=== PATIENT | female | born 1950 | race Hispanic/Latino ===

== ENCOUNTER 2017-08-07 09:13 | Inpatient (IN) | payer BC, MEDICARE ==
[2017-08-07 10:03] LABS: EOS % 2.6 % (1.5-5.0); GRAN # 0.05 (1.4-6.5); GRAN % 12.8 % (50.0-68.0); HEMOGLOBIN 8.1 g/dL (12.0-16.0); LYMPH # 0.3 (1.2-3.4); LYMPH % 76.9 % (22.0-35.0); MEAN CELL VOLUME 94.8 fl (80.0-105.0); MEAN CORPUSCULAR HEMOGLOBIN 32.7 pg (25.0-35.0); MEAN CORPUSCULAR HGB CONC 34.5 g/dl (31.0-37.0); MEAN PLATELET VOLUME 9.8 fl (7.0-11.0); MONO % 7.7 % (1.0-6.0); RBC 2.48 10^6/uL (3.5-6.1); RED CELL DISTRIBUTION WIDTH 14.4 % (11.5-14.5)
[2017-08-07 10:12] LABS: ALBUMIN 4.4 g/dL (3.0-4.8); BLOOD UREA NITROGEN 19 mg/dL (7-21); GFR AFRICAN-AMERICAN > 60; GFR NON-AFRICAN AMERICAN > 60
[2017-08-07 10:13] LABS: ALB/GLOB RATIO 1.3 (1.1-1.8); ALT/SGPT 26 U/L (7-56); AST/SGOT 18 U/L (14-36)
[2017-08-07 10:16] LABS: INR 1.12 (0.93-1.08); PARTIAL THROMBOPLASTIN TIME 25.7 Seconds (25.1-36.5); PROTHROMBIN TIME 12.9 SECONDS (9.4-12.5)
[2017-08-07 10:19] LABS: WHITE BLOOD COUNT 0.4 10^3/ul (4.5-11.0)
[2017-08-07 10:20] LABS: PLATELET COUNT 14 10^3/uL (120.0-450.0)
--- NOTE | 2017-08-07 10:42 | ED PDOC ---
Arrival/HPI - General Chief Complaint: Abnormal Labs Time Seen by Provider: 08/07/17 09:21 Historian: Patient - History of Present Illness Narrative History of Present Illness (Text): 08/07/17 10:05 67 year old female, whose past medical history includes hypertension, diabetes, and GERD, presents to the emergency department for low blood levels. Patient reports she was sent here by her PMD after getting a call informing her on her abnormal labs. Patient states she has multiple bruising on her body for the past several days. Patient denies any fever, chills, chest pain, hemoptysis, shortness of breath, nausea, vomiting, diarrhea, hematuria, urinary symptoms, back pain, neck pain, headache, dizziness, or any other complaints. PMD: Dr. Miranda 08/07/17 11:27 Symptom Onset: Sudden Symptom Course: Unchanged Activities at Onset: Light Context: Home Past Medical History - Provider Review Nursing Documentation Reviewed: Yes - Infectious Disease Hx of Infectious Diseases: None - Reproductive Menopause: Yes - Cardiac Hx Hypertension: Yes - Endocrine/Metabolic Hx Diabetes Mellitus Type 2: Yes - Gastrointestinal Hx Gastroesophageal Reflux: Yes - Psychiatric Hx Depression: No Hx Emotional Abuse: No Hx Physical Abuse: No Hx Substance Use: No - Surgical History Hx Cholecystectomy: Yes Hx Hysterectomy: Yes - Anesthesia Hx Anesthesia: Yes Hx Anesthesia Reactions: No - Suicidal Assessment Feels Threatened In Home Enviroment: No Family/Social History - Physician Review Nursing Documentation Reviewed: Yes Family/Social History: No Known Family HX Smoking Status: Never Smoked Hx Alcohol Use: No Hx Substance Use: No Hx Substance Use Treatment: No Allergies/Home Meds Allergies/Adverse Reactions: Allergies No Known Allergies Allergy (Verified 07/06/13 17:25) Home Medications: Home Meds Medication Instructions Recorded Confirmed Glimepiride [amaRYL] 1 tab PO DAILY 08/07/17 08/07/17 Insulin Glargine,Hum.rec.anlog 15 units SQ DAILY 08/07/17 08/07/17 [Rosa Elena Ramsay] Olmesartan/Hydrochlorothiazide 1 tab PO DAILY 08/07/17 08/07/17 [Olmesartan-Hctz 20-12.5 mg Tab] Rabeprazole Sodium [Aciphex] 20 mg PO DAILY 08/07/17 08/07/17 Review of Systems - Physician Review All systems were reviewed & negative as marked: Yes - Review of Systems Constitutional: absent: Fevers, Other (Chills) Respiratory: absent: SOB, Other (hemoptysis ) Cardiovascular: absent: Chest Pain Gastrointestinal: absent: Diarrhea, Nausea, Vomiting Genitourinary Female: absent: Hematuria Musculoskeletal: absent: Back Pain, Neck Pain Neurological: absent: Headache, Dizziness Physical Exam Vital Signs Reviewed: Yes Vital Signs Temp Pulse Resp BP Pulse Ox 08/07/17 13:13 96 H 18 155/68 H 100 08/07/17 11:13 95 H 18 157/72 H 99 08/07/17 09:23 98.2 F 102 H 18 164/77 H 99 Temperature: Afebrile Blood Pressure: Hypertensive Pulse: Tachycardic Respiratory Rate: Normal Appearance: Positive for: Well-Appearing, Non-Toxic, Comfortable Pain Distress: None Mental Status: Positive for: Alert and Oriented X 3 - Systems Exam Head: Present: Atraumatic, Normocephalic Pupils: Present: PERRL Extroacular Muscles: Present: EOMI Conjunctiva: Present: Normal Mouth: Present: Moist Mucous Membranes Neck: Present: Normal Range of Motion Respiratory/Chest: Present: Clear to Auscultation, Good Air Exchange. No: Respiratory Distress, Accessory Muscle Use Cardiovascular: Present: Regular Rate and Rhythm, Normal S1, S2. No: Murmurs Abdomen: Present: Normal Bowel Sounds. No: Tenderness, Distention, Peritoneal Signs Back: Present: Normal Inspection Upper Extremity: Present: Normal Inspection. No: Cyanosis, Edema Lower Extremity: Present: Normal Inspection. No: Edema Neurological: Present: GCS=15, CN II-XII Intact, Speech Normal Skin: Present: Warm, Dry, Normal Color, Other (Multiple bruising in different stages of healing and in multiple locations). No: Rashes Psychiatric: Present: Alert, Oriented x 3, Normal Insight, Normal Concentration Medical Decision Making ED Course and Treatment: 08/07/17 10:05 Impression: 67 year old female presents for low blood levels. Plan: -- Labs -- Reassess and disposition Prior Visits: Notes and results from previous visits were reviewed. Patient was last seen in the emergency department on 09/27/15 presents for chest discomfort. Patient left against medical advice. Progress Notes: 08/07/17 10:32 Reverse Isolation done due to WBC 0.4 and Immune compromise. 08/07/17 10:35 Case discussed with resident and Dr. Miranda who is aware and agrees with the plan. Patient will be admitted. - Lab Interpretations Lab Results: 08/07/17 09:35 08/07/17 09:35 Lab Results 08/07/17 09:35: Blood Type A POSITIVE, Antibody Screen Negative, BBK History Checked No verified bt 08/07/17 09:35: Sodium 141, Potassium 3.8, Chloride 105, Carbon Dioxide 24, Anion Gap 16, BUN 19, Creatinine 0.6 L, Est GFR ( Amer) > 60, Est GFR ( Non-Af Amer) > 60, Random Glucose 192 H, Calcium 10.0, Total Bilirubin 0.5, AST 18, ALT 26, Alkaline Phosphatase 135 H, Total Protein 7.6, Albumin 4.4, Globulin 3.3, Albumin/Globulin Ratio 1.3 08/07/17 09:35: PT 12.9 H, INR 1.12 H, APTT 25.7 08/07/17 09:35: WBC 0.4 L* D, RBC 2.48 L, Hgb 8.1 L, Hct 23.5 L, MCV 94.8, MCH 32.7, MCHC 34.5, RDW 14.4, Plt Count 14 L*, MPV 9.8, Gran % 12.8 L, Lymph % ( Auto) 76.9 H, [place] % (Auto) 7.7 H, Eos % (Auto) 2.6, Baso % (Auto) 0.0, Gran # 0.05 L, Lymph # 0.3 L, [place] # 0.0 L, Eos # 0.0, Baso # 0.00, Neutrophils % ( Manual) 16 L, Lymphocytes % (Manual) 80 H, Monocytes % (Manual) TEST NOT PERFORMED, Eosinophils % (Manual) 4 H, Platelet Evaluation Low I have reviewed the lab results: Yes - Medication Orders Current Medication Orders: Insulin Human Regular (Humulin R Low) 0 units SC ACHS [facility] PRN Reason: Protocol Losartan Potassium (Cozaar) 100 mg PO DAILY [facility] - Scribe Statement The provider has reviewed the documentation as recorded by the Aysha Renee Provider Scribe Attestation: All medical record entries made by the Scribe were at my direction and personally dictated by me. I have reviewed the chart and agree that the record accurately reflects my personal performance of the history, physical exam, medical decision making, and the department course for this patient. I have also personally directed, reviewed, and agree with the discharge instructions and disposition. Disposition/Present on Arrival - Present on Arrival Any Indicators Present on Arrival: No History of DVT/PE: No History of Uncontrolled Diabetes: No Urinary Catheter: No History of Decub. Ulcer: No History Surgical Site Infection Following: None - Disposition Have Diagnosis and Disposition been Completed?: Yes Diagnosis: Pancytopenia Disposition: HOSPITALIZED Disposition Time: 10:10 Patient Plan: Admission Condition: FAIR
[2017-08-07 10:55] LABS: EOSINOPHIL 4 % (0.0-3.0); LYMPHOCYTE 80 % (22.0-35.0); NEUTROPHIL 16 % (50.0-70.0)
[2017-08-07 10:56] LABS: PLATELET ESTIMATE LOW (NORMAL)
[2017-08-07] MEDS: Insulin Reg-LOW-Coverage SC SCH ×2 (17:56→23:22)
[2017-08-07 19:37] VITALS: BMI 28.0
[2017-08-07] MEDS ORDERED: Influenza Vaccine 60 mcg/0.5 mL SYR (4YR UP) IM ONE (19:37)
[2017-08-07] MEDS ORDERED: Pneumococcal 23-Valent Vaccine IM ONE (19:37)
[2017-08-07 19:47] LABS: GRAN # 0.06 (1.4-6.5); GRAN % 15.8 % (50.0-68.0); LYMPH # 0.3 (1.2-3.4); LYMPH % 76.3 % (22.0-35.0); MEAN CELL VOLUME 96.1 fl (80.0-105.0); MEAN CORPUSCULAR HEMOGLOBIN 33.2 pg (25.0-35.0); MEAN CORPUSCULAR HGB CONC 34.5 g/dl (31.0-37.0); MEAN PLATELET VOLUME 9.8 fl (7.0-11.0); MONO % 7.9 % (1.0-6.0); RBC 2.32 10^6/uL (3.5-6.1); RED CELL DISTRIBUTION WIDTH 14.5 % (11.5-14.5)
[2017-08-07 19:49] LABS: HEMOGLOBIN 7.7 g/dL (12.0-16.0)
[2017-08-07 19:50] LABS: PLATELET COUNT 11 10^3/uL (120.0-450.0); WHITE BLOOD COUNT 0.4 10^3/ul (4.5-11.0)
[2017-08-07] MEDS: MethylPREDNISolone 40 mg Vial IVP SCH (22:55)
[2017-08-08 07:42] LABS: GRAN # 0.06 (1.4-6.5); GRAN % 19.3 % (50.0-68.0); LYMPH # 0.2 (1.2-3.4); MEAN CELL VOLUME 94.3 fl (80.0-105.0); MEAN CORPUSCULAR HEMOGLOBIN 32.4 pg (25.0-35.0); MEAN CORPUSCULAR HGB CONC 34.3 g/dl (31.0-37.0); MEAN PLATELET VOLUME 11.1 fl (7.0-11.0); MONO % 9.7 % (1.0-6.0); RBC 2.44 10^6/uL (3.5-6.1); RED CELL DISTRIBUTION WIDTH 14.1 % (11.5-14.5)
[2017-08-08 08:00] LABS: HEMOGLOBIN 7.9 g/dL (12.0-16.0); PLATELET COUNT 13 10^3/uL (120.0-450.0); WHITE BLOOD COUNT 0.3 10^3/ul (4.5-11.0)
[2017-08-08 08:14] LABS: BLOOD UREA NITROGEN 20 mg/dL (7-21)
[2017-08-08 08:15] LABS: ALB/GLOB RATIO 1.4 (1.1-1.8); ALBUMIN 4.3 g/dL (3.0-4.8); ALT/SGPT 24 U/L (7-56); AST/SGOT 16 U/L (14-36); CALCIUM 10.3 mg/dL (8.4-10.5); GFR AFRICAN-AMERICAN > 60; GFR NON-AFRICAN AMERICAN > 60
[2017-08-08] MEDS: Insulin Reg-LOW-Coverage SC SCH ×3 (08:54→22:00)
[2017-08-08 10:06] LABS: PLATELET ESTIMATE LOW (NORMAL)
[2017-08-08] MEDS: MethylPREDNISolone 40 mg Vial IVP SCH ×2 (11:10→21:59)
[2017-08-08 11:11] LABS: PLATELET COUNT MANUAL 15 K/mm3 (120-450)
[2017-08-08 12:00] LABS: MEAN CELL VOLUME 94.2 fl (80.0-105.0); MEAN CORPUSCULAR HEMOGLOBIN 32.4 pg (25.0-35.0); MEAN CORPUSCULAR HGB CONC 34.4 g/dl (31.0-37.0); RBC 2.41 10^6/uL (3.5-6.1)
[2017-08-08 12:14] LABS: HEMOGLOBIN 7.8 g/dL (12.0-16.0); WHITE BLOOD COUNT 0.5 10^3/ul (4.5-11.0)
[2017-08-08 12:15] LABS: PLATELET COUNT 12 10^3/uL (120.0-450.0)
--- NOTE | 2017-08-08 13:23 | CP.PCM.CON ---
History of Present Illness - History of Present Illness History of Present Illness: 67 year old female with PMH of DM, HTN, GERD, S/P cholecystectomy, S/P hysterectomy came in to [facility] after she had blood work done with her PMD after complaining of bruising over her body. She was noted to be pancytopenic and told to go to be admitted. She hada dental procedure about 2 weeks ago and was given a couple of doses of Clindamycin. She denies headache or dizziness, no cough or colds, no rhinorrhea, no sore throat, no nausea or vomiting, no chest pain, no SOB, no abdominal pain, no diarrhea, no dysuria. She denies animal contacts, no insect bites, denies travel outside of [place] in the past 3 months, no swimming, no travel to wooded areas, denies eating anything out of the ordinary. Infectious Diseases consult is requested to further evaluate and manage. Review of Systems - Review of Systems All systems: reviewed and no additional remarkable complaints except (as per HPI ) Past Patient History - Infectious Disease Hx of Infectious Diseases: None - Past Social History Smoking Status: Never Smoked - CARDIAC Hx Hypertension: Yes - HEENT Hx HEENT Problems: (eyeglasses) Other/Comment: pt had dental work new top plate and implants on bottom was started on erythromycin for top right gum pain took abx x1 wk followed up with dentists partner abx changed to clindamycin started taking it 08/02, 08/03, on friday08/04/17 noticed bruising over entire body in various stages - ENDOCRINE/METABOLIC Hx Diabetes Mellitus Type 2: Yes - INTEGUMENTARY Hx Dermatological Problems: Yes (multiple tatoos) - MUSCULOSKELETAL/RHEUMATOLOGICAL Hx Falls: No - GASTROINTESTINAL Hx Gastroesophageal Reflux: Yes - PSYCHIATRIC Hx Depression: No Hx Emotional Abuse: No Hx Physical Abuse: No Hx Substance Use: No - SURGICAL HISTORY Hx Cholecystectomy: Yes Hx Hysterectomy: Yes Other/Comment: stress fx 1st metarsal r ft has 2 screws 03/2014 - ANESTHESIA Hx Anesthesia: Yes Hx Anesthesia Reactions: No Meds Allergies/Adverse Reactions: Allergies Allergy/AdvReac Type Severity Reaction Status Date / Time No Known Allergies Allergy Verified 07/06/13 17:25 - Medications Medications: Current Medications Famotidine (Pepcid) 20 mg PO DAILY DANIELE Last Admin: 08/07/17 21:02 Dose: 20 mg Insulin Human Regular (Humulin R Low) 0 units SC ACHS [facility] PRN Reason: Protocol Last Admin: 08/07/17 23:22 Dose: 1 units Losartan Potassium (Cozaar) 100 mg PO DAILY [facility] Last Admin: 08/07/17 13:55 Dose: Not Given Methylprednisolone (Solu-Medrol) 20 mg IVP Q12 [facility] Last Admin: 08/07/17 22:55 Dose: 20 mg Physical Exam - Constitutional Appears: Non-toxic, No Acute Distress - Head Exam Head Exam: NORMAL INSPECTION - Neck Exam Neck exam: Negative for: Meningismus - Respiratory Exam Respiratory Exam: Decreased Breath Sounds. absent: Rales - Cardiovascular Exam Cardiovascular Exam: +S1, +S2 - GI/Abdominal Exam GI & Abdominal Exam: Soft. absent: Tenderness Results - Vital Signs Recent Vital Signs: Last Vital Signs Temp 98.6 F 08/07/17 23:28 Pulse 95 H 08/07/17 23:28 Resp 16 08/07/17 23:28 BP 131/76 08/07/17 23:28 Pulse Ox 100 08/07/17 23:28 - Labs Result Diagrams: 08/08/17 11:50 08/08/17 07:30 Labs: Laboratory Results - last 24 hr 08/07/17 08/07/17 08/07/17 11:00 17:50 19:30 WBC 0.4 L* RBC 2.32 L Hgb 7.7 L Hct 22.3 L MCV 96.1 MCH 33.2 MCHC 34.5 RDW 14.5 Plt Count 11 L* MPV 9.8 Gran % 15.8 L Lymph % (Auto) 76.3 H [place] % (Auto) 7.9 H Eos % (Auto) 0.0 L Baso % (Auto) 0.0 Gran # 0.06 L Lymph # 0.3 L [place] # 0.0 L Eos # 0.0 Baso # 0.00 POC Glucose (mg/dL) 90 Blood Type Confirm A POSITIVE 08/07/17 22:54 WBC RBC Hgb Hct MCV MCH MCHC RDW Plt Count MPV Gran % Lymph % (Auto) [place] % (Auto) Eos % (Auto) Baso % (Auto) Gran # Lymph # [place] # Eos # Baso # POC Glucose (mg/dL) 159 H Blood Type Confirm Assessment & Plan - Assessment and Plan (Free Text) Plan: Assessment Pancytopenia, R/O drug-induced, R/O other etiologies DM HTN GERD S/P cholecystectomy S/P hysterectomy Plan Will monitor off antibiotics since the patient does not have fever; for bone marrow biopsy and we have discussed with Dr. Rojas to get cultures including AFB smears and cultures of the bone marrow sample will monitor clinically
[2017-08-08 13:24] LABS: FOLATE 13.7 ng/mL
--- NOTE | 2017-08-08 14:19 | PN ---
DATE: The patient is seen in isolation. SUBJECTIVE: A 67-year-old white female admitted with pancytopenia. Her internal laboratory data showed a platelet count of 13,000, a hemoglobin of 7.9, hematocrit 23, and white count of 0.3 with absolute neutropenia, and blood sugar 252. Normal renal function. The patient is stable. She is in isolation. She is getting infectious disease consult and hematology consult, most likely had a bone marrow done today. Platelets are on hold, as needed. She is on some steroids to boost her platelet count, and also she is being followed for possible infectious diseases. She has been taken off all antibiotics because of possible reaction to antibiotics. PHYSICAL EXAMINATION: VITAL SIGNS: Her temperature is 98.6, heart rate is 95, blood pressure 131/76, pulse is 94, her O2 sat is 100% on room air. HEENT: Face examination is unchanged. There is a draining sinus in the right upper jaw. There is an eschared lesion of the lower lip. Otherwise, there are no signs of bacterial infection. NECK: There is no lymphadenopathy. ABDOMEN: No hepatosplenomegaly. Gustavo Miranda MD
[2017-08-08] MEDS: CARBAMIDE PEROXIDE MM SCH (17:35)
[2017-08-08] MEDS ORDERED: Midazolam 2 MG/2 ML VIAL ONE (17:36)
--- NOTE | 2017-08-08 19:43 | CT ---
PROCEDURE: CT guided bone marrow aspiration and biopsy HISTORY: Pancytopenia. ? Drug-induced. Needs bone marrow biopsy. PHYSICIAN(S): Bear Julian MD. TECHNIQUE: The relative risks and indications of the procedure were explained to the patient and consent obtained. The patient was placed prone on the CT scanner and preliminary images through the pelvis obtained. Conscious sedation and monitoring were provided throughout the procedure by a nurse. The right posterior superior iliac spine was selected for biopsy. The areas prepped and draped usual sterile fashion. An on control bone biopsy needle was advanced to the right posterior superior iliac spine. Its position was confirmed with CT. The needle was advanced through the cortex. Bone marrow aspiration was performed. Next 2 core biopsies of the left ilium were performed with on control needle The specimens and slides were processed by Dr. Ford. The patient tolerated the procedure well IMPRESSION: 1. CT-guided bone marrow aspiration and biopsy as described above.
--- NOTE | 2017-08-08 19:50 | HP ---
HISTORY OF PRESENT ILLNESS: This is a 67-year-old white female with history of insulin-dependent diabetes mellitus fairly controlled, who recently had an infection in the gum of her right upper jaw with some type of a penetrating sinus tract. The patient was treated with p.o. antibiotics by two different dentists and then recently developed ecchymosis of the entire body with black and blues of her entire body without any gingival bleeding, but she did have multiple ecchymotic lesions covering her arms, legs, abdomen, chest, and back. The patient was seen in my office and was found to be pancytopenic with a white count of 0.4, hemoglobin of 8, and a platelet count of 16,000. The patient was directed immediately to the hospital, was placed on isolation, and was seen in consultation by Hematology. LABORATORY DATA: The patient's current white count is 0.3, hemoglobin is 7.9 and platelet count is 13,000, it has been as low as 11,000. PHYSICAL EXAMINATION: GENERAL: The patient is asymptomatic, still has some viral infection on the lower lip in a blistering formation. She still has a drain sinus in the right upper jaw otherwise. CHEST: Clear to auscultation. HEART: Reveals regular sinus rhythm. ABDOMEN: Benign. There is no hepatosplenomegaly. There are no masses palpable. There is no lymphadenopathy. EXTREMITIES: Without cyanosis, clubbing, or edema. IMPRESSION AND PLAN: A 67-year-old white female recently treated with p.o. antibiotics for an oral infection and insulin-dependent diabetes mellitus, who presents with pancytopenia, rule out leukemia, rule out aplastic anemia, rule out EBV virus infection, rule out tuberculosis, rule out lupus, rule out myelodysplastic syndrome, rule out other sarcoidosis, etc., to be other causes of aplastic anemia or pancytopenia. Gustavo Miranda MD
[2017-08-08 21:04] LABS: GRAN # 0.06 (1.4-6.5); GRAN % 18.2 % (50.0-68.0); LYMPH # 0.2 (1.2-3.4); LYMPH % 72.7 % (22.0-35.0); MEAN CORPUSCULAR HEMOGLOBIN 32.3 pg (25.0-35.0); MEAN CORPUSCULAR HGB CONC 34.7 g/dl (31.0-37.0); MONO % 9.1 % (1.0-6.0); RBC 2.29 10^6/uL (3.5-6.1); RED CELL DISTRIBUTION WIDTH 14.1 % (11.5-14.5)
[2017-08-08 21:12] LABS: WHITE BLOOD COUNT 0.3 10^3/ul (4.5-11.0)
[2017-08-08 21:13] LABS: HEMOGLOBIN 7.4 g/dL (12.0-16.0); PLATELET COUNT 13 10^3/uL (120.0-450.0)
--- NOTE | 2017-08-09 01:37 | CON ---
DATE: 08/08/2017 This is [facility] consult on the medical floor. For Dr. Rojas: CHIEF COMPLAINT: Easy bruisability. HISTORY OF PRESENT ILLNESS: The patient is a 67-year-old female sitting up in bed with her family at the bedside in isolation after being admitted by the Emergency Room for history of easy bruisability beginning approximately one week prior. With this patient, otherwise, known to have had a visit with her dentist Dr. Vinay Maria for implants to be done with the patient reporting having been treated with amoxicillin 500 mg four times a day since 07/19/2017 through 07/25/2017. At that time, she had a follow up visit to her dentist who was away with the covering dentist changing her antibiotic to clindamycin b.i.d. which she was taking for 2 to 3 days. She then noticed a significant bruise to the right anterior chest with other small bruises appearing. She then stopped her antibiotics and then attempted to have a visit with her primary doctor who is away. She then eventually did follow up with her primary doctor who recommended her to come to the hospital for admission for significant pancytopenic indices. With this the patient also reports that she has had an ulcerated lesion to the maxilla under her prosthesis prosthetic dentures for over one week's time with the lower implants showing to pose for which is without complaints. She also now reports a fever sore on her lower lip. She has attempted to contact her dentist with no reply. She is now admitted for evaluation and treatment. ALLERGIES: NO KNOWN ALLERGIES. MEDICATIONS: At the time of admission included Gly-Oxide, p.o. Glitazones 30 mg a day, gabapentin 30 mg at bedtime, Ecotrin 81 mg daily, for which she stopped 2 days ago after taking for significant period of time. She also is on Toujeo along with Aciphex, and glimepiride. She also reported taking Advil periodically for her discomfort. 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 She is a nonsmoker and non-ethanolic. However, her family members do smoke with secondary smoke possibility. PAST MEDICAL HISTORY: Significant for diabetes mellitus, hypertension, GERD, status post cholecystectomy, status post hysterectomy, and recent urinary infection. Her dental issues as above. REVIEW OF SYSTEMS: The 12-point review of systems was done which was negative except for as mentioned in the history of present illness. OBJECTIVE/PHYSICAL EXAMINATION: VITAL SIGNS: Temperature is 98.6, pulse is 95, respirations are 16, blood pressure is 131/76, and pulse oximetry is 100%. HEENT: Unremarkable, however, after she removed her upper denture, she does have a ulcerated lesion approximately the size of a small grape to the right maxilla, nonbleeding ulcer. No petechia are noted on the oropharynx palate. NECK: Supple. HEART: Regular rate. LUNGS: Clear. ABDOMEN: Obese, soft, and nontender. EXTREMITIES: No edema. SKIN: Warm and dry with ecchymotic changes to the inner thighs to her right lower extremity up to thigh, her upper back on the right and her arm on the left. NEUROLOGIC: She is awake, alert and oriented x3. LABORATORY DATA: The patient's labs were done. On admission, her white blood count is 0.4 with repeat today of 0.5. Her absolute neutrophil count was done and it was 0.05 with a repeat of 0.06. Her hemoglobin was 8.1 on admission, it is now presently 7.8 and her platelet count was 14,000 on admission with repeat of 12,000 with a manual count of 15,000. Her INR was 1.12 with a chem metabolic panel within normal range with non fast glucose of 252. B12 of 279 and folate of 13.7. It should be noted that the patient's labs were obtained from her visit in 02/2017, with her white blood cell count at that point being within normal range along with hemoglobin and platelet count, all within normal range then. ASSESSMENT: For this patient is that of pancytopenia with easy bruisability, questionable etiology. Also ulcer of the right maxillary buccal mucosa. 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 PLAN: For this patient after conversation with Dr. Rojas is to type and cross for 2 units of packed red blood cells and 2 units of platelets to be on hold should there be necessary. We will discontinue her medications except for her proton pump inhibitor. We will keep her upper denture out to allow her oral mucosa to heal with one saline rinses and Gly-Oxide with liquid diet for now. We will ask for a consult with Dr. Rashi, Infectious Disease product marketing consultant and for Dr. Bear Julian for bone marrow biopsy. We will also continue her Cozaar. We will add Famvir 500 mg p.o. q. 12 hours. with sliding scale insulin to be checked with fingerstick twice a day. We are holding pressure after the fingersticks were done. Solu-Medrol 20 IV q. 12 hours. will continue along with proton pump inhibitor, Tylenol as needed for pain, oxygen 2 L nasal cannula, with the patient in neutropenic precautions, neutropenic diet and neutropenic isolation as necessary. We have also asked for flow cytometric analysis of her blood with her labs to be repeated. At present, there are no active bleeding. No petechiae in the oropharynx and the palate, with the patient's family aware of the diagnosis and recommendations. We will not restart her Ecotrin nor her other antibiotics for now nor gabapentin or Advil. The prognosis for this patient is guarded. We will monitor clinically with labs with further recommendations as per the bone marrow biopsy once it is returned. She will continue on isolation as per Infectious Disease consultants' recommendations for her neutropenic indices. This is a complex patient with a long comprehensive medically necessary and appropriate visit carried out at the bedside in excess of one hour [id number] time with the patient and her family answering questions and copies of her tests were given to her family, with prognosis guarded. We will monitor clinically with labs. Song Garza MD
--- NOTE | 2017-08-09 02:05 | PROCN ---
DATE: 08/08/2017 The patient is in room 570, bed 1. The patient was brought down to the CAT scan room and the patient received conscious sedation by the nurse after she was placed on a prone position. The patient had prior to that given us a written permission for the bone marrow aspiration biopsy. The patient's right posterior superior iliac spine was selected by Dr. Bear Julian, and under CAT scan guidance, we advanced the needle into the cortex, bone marrow aspiration was performed. Slides have been sent along with the bone marrow aspirate for various studies including cultures for AFB, fungal, and bacterial cultures as well. In addition to that, the aspirate smears along with the clots have been sent for analysis as well. Joce-Core biopsies were also done, each core biopsy was adequately approaching about 1.8 cm and this has been sent for various studies as well including flow cytometric analysis, H and E stains, cytogenetics, and appropriate SNF analysis as well, if perceived to be necessary. Concern for this at this point and time, reason for the bone marrow aspiration biopsy, sudden onset of progressive pancytopenia after receiving oral antibiotics for recent dental infection. The patient prior to this apparently has had normal blood counts, so this is a sudden onset. Differential diagnosis is drug-induced pancytopenia which is evolving marrow pathology including with not excluding acute myelogenous leukemia versus progressive myelodysplastic syndrome in this age group. The patient tolerated the procedure well. Specimens have been sent out to [facility] and we will await the answers for the next 48 to 72 hours. In the interim, the patient has been treated with IV steroids. We are going to follow through on the blood work, the patient will be transfused as needed. Right now as far as the thrombocytopenia is concerned, the patient has not had any symptomatic ecchymosis seen in the oral cavity, which would complex to transfuse her because of the risk of spontaneous hemorrhage elsewhere in the critical organs. The patient will need symptomatic blood transfusion. Blood has been typed and cross matched. Depending on further blood testing, we may have to proceed with the transfusion. The patient will also be started empirically on Neupogen while we are awaiting for these tests starting tomorrow if the patient becomes febrile. Otherwise, we are going to just wait to see how things plan out over the next 2 to 3 days especially since the antibiotics have been stopped. The patient will continue PPI for the coverage of the steroids. We will re-chat to the family as well once I have all the details. Jacob Rojas MD
[2017-08-09] MEDS: Pantoprazole 40 mg EC Tab PO SCH (05:40)
[2017-08-09] MEDS: Insulin Reg-LOW-Coverage SC SCH ×4 (07:30→21:31)
[2017-08-09 08:00] LABS: ALB/GLOB RATIO 1.4 (1.1-1.8); ALBUMIN 4.4 g/dL (3.0-4.8); ALT/SGPT 24 U/L (7-56); AST/SGOT 17 U/L (14-36); BLOOD UREA NITROGEN 23 mg/dL (7-21); CALCIUM 10.2 mg/dL (8.4-10.5); GFR AFRICAN-AMERICAN > 60; GFR NON-AFRICAN AMERICAN > 60
[2017-08-09 08:32] LABS: GRAN # 0.06 (1.4-6.5); GRAN % 20.7 % (50.0-68.0); LYMPH # 0.2 (1.2-3.4); LYMPH % 65.5 % (22.0-35.0); MEAN CORPUSCULAR HEMOGLOBIN 33.2 pg (25.0-35.0); MEAN CORPUSCULAR HGB CONC 35.3 g/dl (31.0-37.0); MEAN PLATELET VOLUME 9.9 fl (7.0-11.0); MONO % 13.8 % (1.0-6.0); RBC 2.35 10^6/uL (3.5-6.1); RED CELL DISTRIBUTION WIDTH 14.4 % (11.5-14.5)
[2017-08-09 08:36] LABS: HEMOGLOBIN 7.8 g/dL (12.0-16.0)
[2017-08-09 08:38] LABS: PLATELET COUNT 13 10^3/uL (120.0-450.0); WHITE BLOOD COUNT 0.3 10^3/ul (4.5-11.0)
[2017-08-09 09:35] LABS: PLATELET COUNT MANUAL 14 K/mm3 (120-450); PLATELET ESTIMATE LOW (NORMAL)
[2017-08-09] MEDS: CARBAMIDE PEROXIDE MM SCH ×3 (10:00→21:35)
[2017-08-09] MEDS: MethylPREDNISolone 40 mg Vial IVP SCH ×2 (10:48→21:31)
--- NOTE | 2017-08-09 12:51 | PN ---
DATE: SUBJECTIVE: This 67-year-old white female, admitted to the hospital with pancytopenia, status post antibiotics from a dental infection, multiple ecchymotic lesions on the body, status post bone marrow examination. PHYSICAL EXAMINATION: GENERAL: Physical examination is unchanged. VITAL SIGNS: The patient is afebrile. Vital signs are stable. HEENT: There is no oral bleeding. LUNGS: Chest is clear to auscultation. CARDIOVASCULAR: Heart examination reveals sinus rhythm. GASTROINTESTINAL: Abdomen benign. No hepatosplenomegaly. EXTREMITIES: No cyanosis or edema. There are noted to be ecchymotic lesions on the arms, legs, abdomen and back. LABORATORY DATA: Showed absolute white count of 0.3, hemoglobin of 7.8, and 15,000 platelet count. Laboratory data, otherwise unremarkable. Blood sugar is 216. IMPRESSION: She has no complaints. She is status post pulmonary examination. She is on steroids and the patient will be transfused according to Dr. Rojas and she will also be receiving Neupogen to stimulate her bone marrow. Pancytopenia of unknown etiology, rule out drug-induced versus malignancy versus infection. PLAN: Plan is to transfused Neupogen, steroids and await pulmonary results. Gustavo Miranda MD
--- NOTE | 2017-08-09 13:48 | CP.PCM.PN ---
Subjective - Date & Time of Evaluation Date of Evaluation: 08/09/17 Time of Evaluation: 12:25 - Subjective Subjective: Had bone marrow biopsy yesterday, no fevers overnight. Objective - Vital Signs/Intake and Output Vital Signs (last 24 hours): Temp Pulse Resp BP Pulse Ox 98.4 F 76 16 118/64 100 08/09/17 08:00 08/09/17 08:00 08/09/17 08:00 08/09/17 08:00 08/09/17 08:00 - Medications Medications: Current Medications Acetaminophen (Tylenol 325mg Tab) 650 mg PO Q6H PRN PRN Reason: Pain, Mild (1-3) Carbamide Peroxide (Glyoxide) 0 ml MM QID [facility] Last Admin: 08/08/17 17:35 Dose: 1 drop Famciclovir (Famvir) 500 mg PO Q12 [facility] Last Admin: 08/09/17 10:48 Dose: 500 mg Insulin Human Regular (Humulin R Low) 0 units SC ACHS [facility] PRN Reason: Protocol Last Admin: 08/08/17 22:00 Dose: Not Given Losartan Potassium (Cozaar) 100 mg PO DAILY [facility] Last Admin: 08/09/17 10:48 Dose: 100 mg Methylprednisolone (Solu-Medrol) 20 mg IVP Q12 [facility] Last Admin: 08/09/17 10:48 Dose: 20 mg Pantoprazole Sodium (Protonix Ec Tab) 40 mg PO 0600 [facility] Last Admin: 08/09/17 05:40 Dose: 40 mg - Labs Labs: 08/09/17 07:00 08/09/17 07:00 PT 12.9 SECONDS (9.4-12.5) H 08/07/17 09:35 INR 1.12 (0.93-1.08) H 08/07/17 09:35 APTT 25.7 Seconds (25.1-36.5) 08/07/17 09:35 - Constitutional Appears: Non-toxic - Head Exam Head Exam: NORMAL INSPECTION - Respiratory Exam Respiratory Exam: Decreased Breath Sounds - Cardiovascular Exam Cardiovascular Exam: +S1, +S2 - GI/Abdominal Exam GI & Abdominal Exam: Soft. absent: Tenderness Assessment and Plan - Assessment and Plan (Free Text) Plan: Assessment Pancytopenia, R/O drug-induced, R/O other etiologies herpes oralis DM HTN GERD S/P cholecystectomy S/P hysterectomy Plan Will continue monitor off antibiotics since the patient does not have fever; follow up bone marrow biopsy results and we have discussed with Dr. Rojas continue Famvir for the herpes infection will continue to monitor clinically
[2017-08-09] MEDS ORDERED: DiphenhydrAMINE 50 mg/ml Inj IVP STA (22:46)
[2017-08-09] MEDS ORDERED: Morphine 2 mg/ml ISec IVP STA (23:14)
[2017-08-09] MEDS ORDERED: Sodium Chloride 0.9% 1,000 ML IV STA (23:18)
[2017-08-09 23:35] LABS: GRAN # 0.29 (1.4-6.5); GRAN % 24.6 % (50.0-68.0); HEMOGLOBIN 10.2 g/dL (12.0-16.0); LYMPH # 0.8 (1.2-3.4); LYMPH % 69.5 % (22.0-35.0); MEAN CORPUSCULAR HEMOGLOBIN 31.4 pg (25.0-35.0); MEAN CORPUSCULAR HGB CONC 35.1 g/dl (31.0-37.0); MONO # 0.1 (0.1-0.6); MONO % 5.9 % (1.0-6.0); RBC 3.25 10^6/uL (3.5-6.1); RED CELL DISTRIBUTION WIDTH 15.3 % (11.5-14.5)
[2017-08-09 23:42] LABS: MEAN CELL VOLUME 89.5 fl (80.0-105.0)
--- NOTE | 2017-08-09 23:42 | PCM.RRT ---
PARKING GARAGE MANAGER Nurse Assessment - Situation Date: 08/09/17 Time PARKING GARAGE MANAGER was called: 23:07 PARKING GARAGE MANAGER Responder Arrival Time: 23:10 PARKING GARAGE MANAGER Location:: [address] [place] [address] Room Number: [id number] PARKING GARAGE MANAGER Reason for Call: Chest Pain (Back pain radiating to the chest), Looks Sicker PARKING GARAGE MANAGER Called By: Physician - IV IV Inserted during PARKING GARAGE MANAGER?: No IV Fluids Initiated During PARKING GARAGE MANAGER?: 1Liters normal saline - Respiratory Oxygen Delivery Method: Nasal Cannula @L/min Oxygen Flow Rate: 2 Received Nebulizer Treatments:: No Was the Patient Ventilated with Bag/Mask 100% O2?: No Secretions Suctioned?: No Was the Patient Intubated?: No Was the Patient Placed on a Ventilator?: No - Medication Medications Administered During PARKING GARAGE MANAGER: Nitroglycerin sublingual. Morphine 2 mg IV - Diagnostic Test Ordered EKG: Yes (HR 89 NSR) Chest X-Ray: No CT Scan: Yes - Stat Labs Ordered PARKING GARAGE MANAGER Stat Labs Ordered: CBC, BMP, TROPONIN CPR started during PARKING GARAGE MANAGER?: No - Vital Signs Vital Sign: Afebrile, HR 67 116/51 BP 98% 2L NC - [place] Coma Scale Coma Scale Eye Opening: Spontaneous Coma Scale Motor: Obeys Commands Movement Coma Scale Verbal: Oriented - Recommendations 5) PARKING GARAGE MANAGER Level of Care Recommendations: Remain in current setting Notifications: Family or Designated Caregiver I.Reason for PARKING GARAGE MANAGER - A) Acute Change in Patient: (Select all that apply): Staff member or family is worried about patient Subjective: Patient complained of sudden onset of back pain, radiating to the chest. Denies sob, diaphoresis, abdominal pain. Reports some nausea. - Neurological Status (Select all that apply): Alert, Oriented, Verbal, Follows Commands - Respiratory Oxygen Delivery Method: Nasal Cannula @L/min - Constitutional Appears: In Acute Distress. absent: Confused - Head Head Exam: ATRAUMATIC, NORMOCEPHALIC - Eyes Eye Exam: EOMI, PERRL - Respiratory Exam Respiratory Exam: Clear to Ausculation Bilateral. absent: Chest Wall Tenderness - Cardiovascular Exam Cardiovascular Exam: RRR, +S1, +S2. absent: Murmur - GI/Abdominal Exam GI & Abdominal Exam: Soft, Normal Bowel Sounds. absent: Firm, Guarding, Rebound - Neurological Exam Neurological Exam: Alert, Awake, Oriented x3 - Extremities Exam Extremities Exam: absent: Calf Tenderness, Pedal Edema Plan - Assessment of Findings&Treatment Plan 67 year old female with PMH of DM, HTN, GERD, S/P cholecystectomy, S/P hysterectomy, admitted to [facility] for pancytopenia 2/2 recent Gentamicin course for dental work. Pt came in with some increased bruising. This night, pt started complaining of severe thoracic/lumbar back pain, radiating to the chest area. - Nitroglycerin, CBC, CMP, EKG, troponin - CT thoracic and lumbar - Morphine IV for pain - Talked to daughter regarding patient's current status.
[2017-08-09 23:43] LABS: PLATELET COUNT 7 10^3/uL (120.0-450.0); WHITE BLOOD COUNT 1.2 10^3/ul (4.5-11.0)
[2017-08-09 23:45] LABS: ALB/GLOB RATIO 1.4 (1.1-1.8); ALBUMIN 4.2 g/dL (3.0-4.8); ALT/SGPT 23 U/L (7-56); AST/SGOT 27 U/L (14-36); BLOOD UREA NITROGEN 38 mg/dL (7-21); CALCIUM 9.8 mg/dL (8.4-10.5); GFR AFRICAN-AMERICAN 60; GFR NON-AFRICAN AMERICAN 49
[2017-08-09 23:56] LABS: TROPONIN I < 0.01 ng/mL
--- NOTE | 2017-08-10 00:39 | CT ---
EXAM: CT Thoracic Spine Without Intravenous Contrast CLINICAL HISTORY: 67 years old, female; Pain; Other: Back pain TECHNIQUE: Axial computed tomography images of the thoracic spine without intravenous contrast. All CT scans at this facility use one or more dose reduction techniques, viz.: automated exposure control; ma/kV adjustment per patient size (including targeted exams where dose is matched to indication; i.e. head); or iterative reconstruction technique. COMPARISON: No relevant prior studies available. FINDINGS: Vertebrae: No acute fracture. Discs/spinal canal/neural foramina: Mild degenerative changes of spine. No significant spinal stenosis. Soft tissues: Unremarkable. Vasculature: Mild atherosclerotic disease. Lungs: Mild atelectasis. IMPRESSION: 1. No fracture. 2. If back pain persists, consider MRI for further evaluation. 3. Incidental/non-acute findings are described above.
--- NOTE | 2017-08-10 00:45 | CT ---
EXAM: CT Lumbar Spine Without Intravenous Contrast CLINICAL HISTORY: 67 years old, female; Pain; Other: Back pain TECHNIQUE: Axial computed tomography images of the lumbar spine without intravenous contrast. All CT scans at this facility use one or more dose reduction techniques, viz.: automated exposure control; ma/kV adjustment per patient size (including targeted exams where dose is matched to indication; i.e. head); or iterative reconstruction technique. Coronal and sagittal reformatted images were created and reviewed. COMPARISON: No relevant prior studies available. FINDINGS: Limitations: Motion artifact - mild. Vertebrae: No acute fracture. Facet osteoarthrosis within lower lumbar spine. Discs/spinal canal/neural foramina: Severe degenerative disc disease at L4-L5 level. Disc bulges at L2-L3, L3-L4, L4-L5, L5-S1 levels. Mild central canal stenosis at L2-L3, L3-L4, L4-L5 levels. Soft tissues: Unremarkable. Vasculature: Hxyo-yf-zgehvfcm atherosclerotic disease. Liver: Small exophytic lesions along right lobe. Stomach and bowel: Colonic diverticula. Reproductive: Hysterectomy. IMPRESSION: 1. No fracture. 2. If back pain persists, consider MRI for further evaluation. 3. Liver lesions. Recommend nonemergent MRI. 4. Incidental/non-acute findings are described above.
[2017-08-10] MEDS ORDERED: Morphine 2 mg/ml ISec IVP STA (01:18)
[2017-08-10] MEDS ORDERED: Alum-Mag Hydrox-Simethicone Susp (30 mL) PO ONE (02:37)
--- NOTE | 2017-08-10 02:47 | PCM.RRT ---
STRIPING MACHINE OPERATOR Nurse Assessment - Situation Date: 08/09/17 Time STRIPING MACHINE OPERATOR was called: 23:07 STRIPING MACHINE OPERATOR Responder Arrival Time: 23:10 STRIPING MACHINE OPERATOR Location:: [address] [place] [address] Room Number: [id number] STRIPING MACHINE OPERATOR Reason for Call: Chest Pain (Back pain radiating to the chest), Looks Sicker STRIPING MACHINE OPERATOR Called By: Physician - IV IV Inserted during STRIPING MACHINE OPERATOR?: No IV Fluids Initiated During STRIPING MACHINE OPERATOR?: 1Liters normal saline - Respiratory Oxygen Delivery Method: Nasal Cannula @L/min Oxygen Flow Rate: 2 Received Nebulizer Treatments:: No Was the Patient Ventilated with Bag/Mask 100% O2?: No Secretions Suctioned?: No Was the Patient Intubated?: No Was the Patient Placed on a Ventilator?: No - Medication Medications Administered During STRIPING MACHINE OPERATOR: Nitroglycerin sublingual. Morphine 2 mg IV - Diagnostic Test Ordered EKG: Yes (HR 89 NSR) Chest X-Ray: No CT Scan: Yes - Stat Labs Ordered STRIPING MACHINE OPERATOR Stat Labs Ordered: CBC, BMP, TROPONIN CPR started during STRIPING MACHINE OPERATOR?: No - Vital Signs Vital Sign: Rapid Response Vital Sign Blood Pressure 116/51 Pulse Rate 92 Respiratory Rate 20 Temperature 98.8 F Oxygen Saturation 95 - Finger Stick Blood Glucose Finger Stick Blood Glucose: 171 - [place] Coma Scale Coma Scale Eye Opening: Spontaneous Coma Scale Motor: Obeys Commands Movement Coma Scale Verbal: Oriented - Sepsis Screen Part 1 Sepsis Screen Part 1: Hypotensive - Time STRIPING MACHINE OPERATOR Ended Time STRIPING MACHINE OPERATOR Ended: 23:30 - Vital Signs at end of STRIPING MACHINE OPERATOR Vital Signs at end of STRIPING MACHINE OPERATOR: Rapid Response End Vital Sign Blood Pressure 105/52 Pulse Rate 91 Respiratory Rate 18 Temperature 99 F O2 Sat by Pulse Oximetry 98 - Recommendations 5) STRIPING MACHINE OPERATOR Level of Care Recommendations: Remain in current setting Notifications: Family or Designated Caregiver I.Reason for STRIPING MACHINE OPERATOR - A) Acute Change in Patient: (Select all that apply): Staff member or family is worried about patient - Neurological Status (Select all that apply): Alert, Oriented - Respiratory Oxygen Delivery Method: Nasal Cannula @L/min Oxygen Flow Rate: 2 - Constitutional Appears: In Acute Distress - Head Head Exam: ATRAUMATIC, NORMOCEPHALIC - Eyes Eye Exam: EOMI, PERRL. absent: Conjunctival injection, Scleral icterus - Respiratory Exam Respiratory Exam: Clear to Ausculation Bilateral - Cardiovascular Exam Cardiovascular Exam: RRR, +S1, +S2. absent: Murmur - GI/Abdominal Exam GI & Abdominal Exam: Soft, Normal Bowel Sounds - Neurological Exam Neurological Exam: Alert, Awake, Oriented x3 - Extremities Exam Extremities Exam: absent: Calf Tenderness, Pedal Edema Plan - Assessment of Findings&Treatment Plan 67 year old female with PMH of DM, HTN, GERD, S/P cholecystectomy, S/P hysterectomy, admitted to [facility] for pancytopenia 2/2 recent Gentamicin course for dental work. Pt came in with some increased bruising. Earlier STRIPING MACHINE OPERATOR called for back pain radiating to chest, CBC, CMP, initial troponin neg, EKG showed NSR. CT throacic and lumbar shows degenerative joint disease lumbar spinal canal stenosis. This time, STRIPING MACHINE OPERATOR was called for chest pain: - Sublingual nitroglycerin, Maalox, Pepcid - Flexeril - CT chest/abd/pelvis - Troponin - Transfer to Tele - EKG shows HR 98. Sinus rhythm. No ST changes. Discussed with Dr Carey Meyer.
--- NOTE | 2017-08-10 04:01 | CT ---
EXAM: CT Chest Without Intravenous Contrast CLINICAL HISTORY: 67 years old, female; Pain; Other: Chest pain TECHNIQUE: Axial computed tomography images of the chest without intravenous contrast. All CT scans at this facility use one or more dose reduction techniques, viz.: automated exposure control; ma/kV adjustment per patient size (including targeted exams where dose is matched to indication; i.e. head); or iterative reconstruction technique. Coronal and sagittal reformatted images were created and reviewed. COMPARISON: No relevant prior studies available. FINDINGS: Limitations: Lack of intravenous contrast. Lungs: Mild atelectasis/scarring. No consolidation. Pleural space: Mild pleural thickening/peripheral atelectasis, right greater than left. No significant pleural effusion. No pneumothorax. Heart: Borderline cardiomegaly. No significant pericardial effusion. Coronary artery calcifications. Mediastinum: Small hiatal hernia. Bones/joints: Mild degenerative changes of spine. No acute fracture. Soft tissues: Unremarkable. Vasculature: Mild atherosclerotic disease. Lymph nodes: No pathologically enlarged lymph nodes. IMPRESSION: 1.No acute findings. 2.Non-acute findings are described above. EXAM: CT Abdomen and Pelvis Without Intravenous Contrast CLINICAL HISTORY: 67 years old, female; Pain; Other: Chest pain TECHNIQUE: Axial computed tomography images of the abdomen and pelvis without intravenous contrast. All CT scans at this facility use one or more dose reduction techniques, viz.: automated exposure control; ma/kV adjustment per patient size (including targeted exams where dose is matched to indication; i.e. head); or iterative reconstruction technique. Coronal and sagittal reformatted images were created and reviewed. COMPARISON: No relevant prior studies available. FINDINGS: Limitations: Lack of intravenous contrast. ABDOMEN: Liver: Unremarkable. Gallbladder and bile ducts: Cholecystectomy. No significant ductal dilation. Pancreas: Unremarkable. No ductal dilation. Spleen: No splenomegaly. Adrenals: No mass. Kidneys and ureters: No renal calculi. No hydronephrosis. Stomach and bowel: Scattered diverticula within colon. No associated inflammatory stranding. Probable underdistention of LEFT colon. No definite mural thickening. Few minimally distended loops of small bowel, likely ileus. Appendix: No findings to suggest acute appendicitis. PELVIS: Bladder: Unremarkable. No stones. Reproductive: Hysterectomy. ABDOMEN and PELVIS: Intraperitoneal space: No significant fluid collection. No free air. Bones/joints: Degenerative changes of spine. No acute fracture. Soft tissues: Tiny umbilical hernia containing fat. Vasculature: Mild to moderate atherosclerotic disease of aorta and iliac arteries. No aneurysm. Retroaortic LEFT renal vein. Lymph nodes: No pathologically enlarged lymph nodes. IMPRESSION: 1. Diverticulosis without definite CT evidence of diverticulitis. 2. Incidental/non-acute findings are described above.
[2017-08-10 04:16] LABS: URINE BILIRUBIN NEGATIVE (NEGATIVE); URINE BLOOD LARGE (NEGATIVE); URINE GLUCOSE (UA) NEGATIVE (NEGATIVE); URINE LEUKOCYTE ESTERASE NEGATIVE Leu/uL (NEGATIVE); URINE NITRATE POSITIVE (NEGATIVE); URINE PROTEIN NEGATIVE mg/dL (<30 mg/dL); URINE UROBILINOGEN 0.2 E.U./dL (<1 E.U./dL)
[2017-08-10 04:17] LABS: URINE APPEARANCE CLEAR (CLEAR); URINE COLOR YELLOW (YELLOW)
[2017-08-10 04:28] LABS: URINE BACTERIA MANY (NEG); URINE RBC 0 - 2 /hpf (0-2); URINE WBC 0 - 2 /hpf (0-6)
--- NOTE | 2017-08-10 04:29 | PN ---
DATE: 08/09/2017 LOCATION: The patient is in room 570, bed 1. REASON FOR CONSULTATION: Progressive pancytopenia, sudden onset with symptomatic ecchymosis all over the body. The patient had a bone marrow aspiration biopsy yesterday. The results are still pending. No fevers or chills overnight. The patient has been otherwise holding her own subjectively. No nausea, no vomiting, no fevers. PHYISCAL EXAMINATION: VITAL SIGNS: The patient is examined in bed. Vital signs are stable. T-max is 98.4, pulse is 76, respirations 16, blood pressure is 118/64, pulse ox is 100% on room air. The patient is in neutropenic isolation. The patient is examined, was wearing protective mask and gown along with gloves. GENERAL: The patient is awake, alert, and oriented, in no acute distress. The patient's petechiae over the entire body appears to have improved symptomatically. The patient has no other significant complaints. HEENT: Head is normocephalic, atraumatic. Examination of the oropharynx reveals no petechiae. Tongue is moist. No ulcerations are noted. NECK: Supple. There is no adenopathy. LUNGS: Clear to percussion and auscultation. HEART: Reveals PMI to be in the fifth intercostal space inside the midclavicular line. S1 and S2 are normal. No gallop or murmur. SKIN: The patient has herpetic lesions on the lips for which she is on Famvir. ABDOMEN: Soft and nontender. Liver and spleen are not palpable. No rebound, rigidity, or guarding is noted. EXTREMITIES: Reveal no cyanosis, clubbing, or edema. The patient has decreased petechiae all over her body which appeared to be improving compared to the day of admission. NEUROLOGIC: Reveals higher functions to be normal. No focal deficits are noted. AND RECTAL: Deferred. There is no evidence of adenopathy in the neck, axillary, or groin. LABORATORY DATA: Reviewed. White count is 0.3, hemoglobin 7.8, hematocrit 22.1, platelet count is 13,000. Sodium is 130, K is 4.8, chloride is 104, CO2 is 26, BUN is 23, creatinine 0.8, blood sugar is 216. PT/INR within normal limits. MEDICATIONS: The patient's medications were reviewed. She is on Tylenol 650 q.4 hours p.r.n., Gly-Oxide for about q.i.d. The patient has issues with her ulcerations in the roof of the mouth on the right side anteriorly where she had ulcerations for which she was treated with amoxicillin and clindamycin. She is on famciclovir 500 mg q. 12 hours, insulin p.r.n., on low dose insulin coverage, Cozaar 100 daily. She is on methylprednisolone 20 mg IV q.12 hours, pantoprazole 40 mg daily. LABORATORY DATA: The patient's other labs were reviewed. Cultures are so far negative. Other lab data from immunologic point of view, blood has been sent. BRUCE was negative. are still pending. Flow cytometrics also still pending. The patient's manual platelet count is 14,000. ASSESSMENT, NOTES, AND PLAN: The patient has pancytopenia. Differential diagnosis at this point in time is drug-induced pancytopenia. 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 Other bone marrow pathology etiologies also to be included in the differential, based on the patient's age including acute myeloid leukemia, progressive myelodysplastic syndrome, or acute marrow failure. So, these results are still pending. We will request for Parvo virus titers as well once we reviewed the marrow results, which would be available in 48 to 72 hours. PLAN: The patient is going to be getting 2 units of blood and 1 unit of platelets today. Empirically,we are going to start the patient on Granix 300 mcg subcu daily till the AMC comes above 1.5. Hopefully, she will respond to it if it is drug related. Routine post-exam instructions have been given to the patient. We will follow the patient very carefully over the next 3 days. The patient continues GI and DVT prophylaxis. Encouraged the patient to get up and walk in the room. The patient will continue to stay on a neutropenic diet for now. Spoke to the family and gave them a call, so that they can be in open communication over the next several days till we have final diagnosis. Time spent with the patient, greater than 45 minutes in collating all the information, discussing with the patient's family, and writing the orders. Jacob Rojas MD cc: [facility] # [id number]
[2017-08-10] MEDS: Pantoprazole 40 mg EC Tab PO SCH (06:28)
[2017-08-10] MEDS ORDERED: Morphine 2 mg/ml ISec IVP ONE (08:58)
[2017-08-10] MEDS: MethylPREDNISolone 40 mg Vial IVP SCH ×2 (09:17→21:14)
[2017-08-10 09:18] LABS: BASO # 0.01 K/mm3 (0.0-2.0); BASO % 0.7 % (0.0-3.0); GRAN # 0.34 (1.4-6.5); GRAN % 25.4 % (50.0-68.0); LYMPH # 0.9 (1.2-3.4); LYMPH % 67.2 % (22.0-35.0); MEAN CORPUSCULAR HEMOGLOBIN 31.3 pg (25.0-35.0); MEAN CORPUSCULAR HGB CONC 34.8 g/dl (31.0-37.0); MEAN PLATELET VOLUME 9.6 fl (7.0-11.0); MONO # 0.1 (0.1-0.6); MONO % 6.7 % (1.0-6.0); RBC 3.19 10^6/uL (3.5-6.1); RED CELL DISTRIBUTION WIDTH 16.1 % (11.5-14.5)
[2017-08-10] MEDS: Insulin Reg-LOW-Coverage SC SCH ×4 (09:18→22:58)
[2017-08-10 09:22] LABS: PLATELET COUNT 15 10^3/uL (120.0-450.0); WHITE BLOOD COUNT 1.3 10^3/ul (4.5-11.0)
[2017-08-10] MEDS ORDERED: HYDROmorphone 2 mg/ml ISec IVP PRN (09:55)
[2017-08-10] MEDS: CARBAMIDE PEROXIDE MM SCH ×4 (10:03→22:48)
[2017-08-10 11:10] LABS: ALB/GLOB RATIO 1.3 (1.1-1.8); ALBUMIN 3.9 g/dL (3.0-4.8); ALT/SGPT 25 U/L (7-56); AST/SGOT 47 U/L (14-36); BLOOD UREA NITROGEN 33 mg/dL (7-21); CALCIUM 9.7 mg/dL (8.4-10.5); GFR AFRICAN-AMERICAN > 60; GFR NON-AFRICAN AMERICAN > 60
--- NOTE | 2017-08-10 11:10 | US ---
PROCEDURE: Ultrasound of the Kidneys HISTORY: increaded renal function COMPARISON: None available. TECHNIQUE: Sonogram of the kidneys. FINDINGS: RIGHT KIDNEY: Measures: cm. Normal in size, contour and echogenicity. No stone, solid mass lesion or hydronephrosis visualized. LEFT KIDNEY: Measures: cm. Normal in size, contour and echogenicity. No stone, solid mass lesion or hydronephrosis visualized. OTHER FINDINGS: None. IMPRESSION: Unremarkable renal sonogram.
--- NOTE | 2017-08-10 12:03 | CARD ---
APPROVED REPORT EKG Measurement Heart [id number] <Conclusion> Normal sinus rhythm Nonspecific ST abnormality Abnormal ECG
[2017-08-10] MEDS: Morphine 2 mg/ml ISec IVP PRN ×4 (12:49→23:05)
--- NOTE | 2017-08-10 14:20 | PN ---
DATE: SUBJECTIVE: The patient is a 67-year-old white female in isolation for neutropenic precaution for presentation with pancytopenia. The patient is status post transfusion, also status post Neupogen. Her hemoglobin is up to 10.0, hematocrit 28.7, white count has jumped to 1.3, platelet count is 15,000; up from 13,000. She has 99.1 temperature. She also had an elevated BUN and creatinine at 38 and 1.1. She is on steroids. The patient had an acute episode of severe back pain last night. She was seen on rapid response x2. Cardiac enzymes were negative. EKG showed no changes. She had a CT of the lumbar spine and thoracic spine which showed degenerative disease with no other pathology. She also had a CT of the abdomen and pelvis which was unremarkable. Possibilities are renal stone, renal pathology, reaction to Neupogen, reaction to the blood transfusions. Neupogen will be of help for now. The patient was treated with Dilaudid and Motrin. Her personal history is unchanged. She is in pain, approximately 8/10. PHYSICAL EXAMINATION: CHEST: Clear to auscultation and percussion. HEART: Reveals regular sinus rhythm without murmurs. ABDOMEN: There is no CVA tenderness. There is tenderness over the lumbosacral spine. VITAL SIGNS: Blood pressure is 130/70. IMPRESSION: Acute pain, rule out secondary to Neupogen, rule out secondary to renal disease. Renal ultrasound has been ordered. Dr. Amaya has been put on consultation. The patient is receiving pain medications. We will observe closely over the next 24 hours. Gustavo Miranda MD
[2017-08-10] MEDS: Sodium Chloride 0.45% 1,000 ML IV SCH (16:19)
--- NOTE | 2017-08-11 00:19 | CON ---
DATE: 08/10/2017 REASON FOR CONSULTATION: Acute kidney injury, anemia, pancytopenia. HISTORY OF PRESENT ILLNESS: A 67-year lady, previously unknown to me, was admitted on 08/07/2017, status post infection in gum and the right upper jaw. As per PMD's note, the patient was treated with p.o. antibiotics by two different dentists, and then recently developed ecchymosis of the entire body. There was no history of any gingival bleed. The patient was sent to the emergency room from PMD's office because she was found to be pancytopenic. Her white count was 0.4, hemoglobin was 18, and platelet count was 16,000. The patient underwent bone marrow biopsy. Consultation is requested for rise in creatinine from 0.6 to 1.1. PAST MEDICAL AND SURGICAL HISTORY: NIDDM, hypertension, no history of CAD, no history of any kidney disease, hysterectomy. FAMILY HISTORY: Hypertension. SOCIAL HISTORY: No smoking, no alcohol use, no IV drug abuse. ALLERGIES: NO KNOWN DRUG ALLERGIES. MEDICATIONS. At home, had been Aciphex, Benicar HCT 20/12.5, insulin, and glimepiride Current medications: Cozaar 100 cm, Famvir 500 q.12, insulin, morphine, Protonix, Solu-Medrol 20 q.12, Tylenol. REVIEW OF SYSTEMS: The patient denies any fever, chills. She denies any abdominal pain. She denies any nausea, vomiting, diarrhea, constipation. She denies any urinary complaints at present. PHYSICAL EXAMINATION: GENERAL: Elderly lady lying in bed. Vital signs: Blood pressure 130/70, heart rate 95, respiratory rate 19, temperature 99.1, T-max is 100.0. HEENT: Normocephalic, atraumatic, positive pallor. NECK: Supple, no JVD. LUNGS: Bilateral equal entry, bilateral equal expansion, no rales. CARDIAC: S1, S2, regular rate and rhythm, no murmur, no rub. ABDOMEN: Obese, distended, soft, nontender, bowel sounds present. EXTREMITIES: No lower extremity edema. INTAKE AND OUTPUT: 3240/500. LABORATORY DATA: WBC 1.3, hemoglobin 10, hematocrit 28.7, platelets 15. The patient received 2 units of blood yesterday. She also received [address] of the lumbar spine showed severe DJD of the L4-L5 disc bulges throughout the lumbar spine, mild central canal stenosis. CT of the thoracic spine, CT of the chest, abdomen and pelvis. Renal ultrasound done this morning, right kidney, ultrasound was normal. ASSESSMENT AND PLAN 1. Acute kidney injury, suspect mild prerenal azotemia in the setting of acute illness, decreased intake, concomitant ARB. 2. Pancytopenia, symptomatic thrombocytopenia with diffuse ecchymosis. 3. Hypertension. 4. Non-insulin dependent diabetes mellitus. 5. ?Viral illness. PLAN: 1. Gentle hydration. 2. Okay to continue ARB for the time being. 3. Avoid nephrotoxins. 4. Monitor fingersticks and maintain euglycemia. 5. Follow up bone marrow biopsy. 6. Continue antivirals. 7. Monitor daily electrolytes. Thank you for the courtesy of this consultation. We will follow this patient closely with you. Yashira Amaya MD
--- NOTE | 2017-08-11 01:07 | PN ---
DATE: 08/10/2017 LOCATION: The patient is in room 570, bed 2. SUBJECTIVE: Please make a note, this is a medically necessary, appropriate and prolonged visit for this 67-year-old female, who was admitted on 08/07/2017 with progressive pancytopenia, multiple ecchymosis all over her body, underwent bone marrow aspiration biopsy on Friday evening, results of which is still pending, is on IV steroids and PPI and based on her blood counts, which were progressively trending downwards especially with hemoglobin of 7.6 and platelet count around 47,000. The patient was given blood and platelets. She also was started empirically after the marrow biopsy on Granix, which is generic Neupogen start around noontime on 08/09/2017 and then by 8 o'clock on 08/09/2017, the patient was started having significant amount of mid chest going back to the mid back pain, excruciating in nature on the pain scale of 0 to 10 being 8 or 9. The patient ended up having 2 rapid responses with CAT scan of the abdomen and pelvis. CAT scan of the spine being done both of which were grossly unremarkable. The patient's temperature was 99.1. She had elevated BUN and creatinine was 1.1, but she is on steroids, which could account for that. The patient had to finally receive IV morphine and by the time was apparent, I was not aware of it and I got a call around 9 o'clock from the charge nurse and further testing was requested including renal ultrasound, which was reported as negative. Differential diagnosis for the pain was thought to be either from the Neupogen very unlikely to be related to be a transfusion reaction, but transfusion reaction workup is also requested through the blood bank. Most likely cause appear to be side effect from the expansion of the marrow, caused by that one dose of generic Neupogen or Granix. Possibility of renal stone is another thoughts that are also in mind and Nephrology consult was requested as well. The patient at the time of examination was noted to be still in considerable pain even though received morphine and I asked the patient's nurse to be giving the patient another stat dose of morphine 2 mg, she has been going to get it every 3 hours. The patient states she has been urinating well, but has not yet gone to the bathroom. No nausea. No vomiting. No fevers. No chills. PHYSICAL EXAMINATION: GENERAL: The patient is awake, alert, oriented, she is sleepy as she has not slept all night, but is able to communicate with me. VITAL SIGNS: Blood pressure reveals to be 130/70. Rest of the vitals are within normal limits. HEENT: Head is normocephalic and atraumatic. Conjunctivae pale. Sclerae anicteric. Pupils are equally reactive to light and accommodation. Examination of the oropharynx reveals no oropharyngeal lesion. Tongue is moist. NECK: Supple. There is no adenopathy. LUNGS: Clear to percussion and auscultation. HEART: Reveals PMI to be in the fifth intercostal space inside the midclavicular line. S1 and S2 normal. No gallop or murmur is heard. ABDOMEN: Soft and nontender. There is no CVA tenderness. There is no tenderness over the lumbar spine. ASSESSMENT, NOTES, AND PLAN: severity has to be related to the growth factor Granix/Neupogen, which before the white count goes up, can cause excruciating pain secondary to expansion of the bone marrow, which is a good sign as the white count will be above 5000 by the a.m. Treatment for this is usually Motrin or IV morphine and in this case I would refer not to give morphine because of the patient's pancytopenia at this point in time. Renal consult with Dr. Amaya has already been requested. We will continue to monitor the patient very carefully. The patient is on IV morphine q. 3 hours and we will also make sure the patient is taking enough fluids and continue the IV steroids for now and will have to make a decision if the platelet count is still continue to remain low, we will make further changes. Today's white count appears to be slightly improved. Total white count is 1.3 and she is still low at this time and ANC is 300, hemoglobin has gone up to 10, hematocrit of 28.7, and platelet count of 15,000. I have discussed my findings in detail with the patient and I have told the patient's family to give me a call, to the nurse and I left copies of the reports with the nurse in case the family would like to communicate with me. Time spent with the patient in correlating all the facts and reviewing all the labs and x-ray reports with the patient more than an hour. This is a complex evaluation in the patient with multiple comorbid medical issues with new events happening through the night most likely related Neupogen rather than cardiac issues. Workup including troponin and BNP have been negative. We will speak to Dr. Miranda, the primary attending as well. Jacob Rojas MD
[2017-08-11] MEDS: Morphine 2 mg/ml ISec IVP PRN ×5 (01:58→21:25)
[2017-08-11] MEDS: Pantoprazole 40 mg EC Tab PO SCH (05:10)
[2017-08-11 07:57] LABS: BASO # 0.01 K/mm3 (0.0-2.0); BASO % 1.8 % (0.0-3.0); GRAN # 0.11 (1.4-6.5); GRAN % 19.3 % (50.0-68.0); HEMOGLOBIN 9.5 g/dL (12.0-16.0); LYMPH # 0.5 (1.2-3.4); LYMPH % 78.9 % (22.0-35.0); MEAN CELL VOLUME 89.4 fl (80.0-105.0); MEAN CORPUSCULAR HEMOGLOBIN 30.6 pg (25.0-35.0); MEAN CORPUSCULAR HGB CONC 34.3 g/dl (31.0-37.0); RED CELL DISTRIBUTION WIDTH 16.1 % (11.5-14.5)
[2017-08-11 08:05] LABS: PLATELET COUNT 4 10^3/uL (120.0-450.0); WHITE BLOOD COUNT 0.6 10^3/ul (4.5-11.0)
[2017-08-11 08:21] LABS: ALB/GLOB RATIO 1.2 (1.1-1.8); ALBUMIN 3.5 g/dL (3.0-4.8); ALT/SGPT 28 U/L (7-56); AST/SGOT 27 U/L (14-36); BLOOD UREA NITROGEN 27 mg/dL (7-21); CALCIUM 9.5 mg/dL (8.4-10.5); GFR AFRICAN-AMERICAN > 60; GFR NON-AFRICAN AMERICAN > 60
[2017-08-11] MEDS: MethylPREDNISolone 40 mg Vial IVP SCH ×2 (09:04→21:26)
[2017-08-11] MEDS: Insulin Reg-LOW-Coverage SC SCH ×4 (09:04→21:37)
[2017-08-11] MEDS: CARBAMIDE PEROXIDE MM SCH ×4 (09:15→21:33)
[2017-08-11] MEDS: Sodium Chloride 0.45% 1,000 ML IV SCH ×2 (09:17→20:27)
[2017-08-11 11:45] LABS: ALPHA-1-GLOBULIN (PEP) 0.4 g/dL (0.2-0.3)
--- NOTE | 2017-08-11 12:23 | PN ---
DATE: SUBJECTIVE: A 67-year-old white female admitted to the hospital with pancytopenia, status post reaction to Neupogen with severe back pain, still having severe back pain, somewhat less than yesterday approximately 02/10. The patient was on IV morphine and Motrin for back pain. Her counts have changed slightly overnight. She now has white count of 0.6 down from 1.3, hemoglobin is stable at 9.5, status post transfusion of 2 units of blood, platelet count has dropped down from 16,000 to 4,000. The patient is on reverse isolation. PLAN: The patient did have bone marrow examination. Point is to check bone marrow slides today. Continue IV steroids and pain medication. Gustavo Miranda MD
--- NOTE | 2017-08-11 12:45 | PN ---
DATE: 08/11/2017 SUBJECTIVE: The patient is seen lying in bed. She is groggy. She is arousable. She complains of severe pain in her back and her shoulders and her sternum. She denies any nausea or vomiting. She denies any abdominal pain. She denies any fevers or chills. PHYSICAL EXAMINATION: GENERAL: Elderly lady lying in bed. VITAL SIGNS: Blood pressure 136/81, heart rate 91, respiratory rate 20, and temperature 97.6. HEENT: Normocephalic, atraumatic, positive pallor. NECK: Supple, no JVD. LUNGS: Bilateral equal air entry, bilateral equal expansion, no rales. CARDIAC: S1 and S2, regular rate and rhythm, no murmur, no rub. ABDOMEN: Soft, nondistended, and nontender, bowel sounds present. EXTREMITIES: No lower extremity edema. INTAKE AND OUTPUT: 1740/400. LABORATORY DATA: WBC 0.6, hemoglobin 9.5, hematocrit 27.7, and platelets 4. CURRENT MEDICATIONS: Cozaar 100 mg daily, Famvir 500 q.12 hours, carbamide peroxide, insulin, morphine, Motrin, Protonix, half-normal saline at 60, Solu-Medrol 20 q.12 hours, and Tylenol. ASSESSMENT AND PLAN: 1. Pancytopenia, etiology unclear,? viral infection. 2. Severe thrombocytopenia, but no evidence of external bleeding. 3. Hemoglobin is stable. 4. Hyponatremia. 5. Hypertension. 6. Rpf-[id number]-rrtfelavn diabetes mellitus. 7. Severe bone pain,? secondary to Neupogen and expansion of the marrow. 8. Hyponatremia. PLAN: 1. Check urine sodium, urine creatinine, and urine osmolality. 2. Continue current antihypertensive regimen. 3. Monitor fingerstick and continue insulin coverage. 4. Follow up bone marrow biopsy. 5. Monitor cellular counts. 6. Continue neutropenic isolation. 7. Case discussed at length with daughter at bedside. Yashira Amaya MD
--- NOTE | 2017-08-11 17:12 | CP.PCM.PN ---
Subjective - Date & Time of Evaluation Date of Evaluation: 08/11/17 Time of Evaluation: 13:30 - Subjective Subjective: Sleep but arousable, no fevers overnight. Objective - Vital Signs/Intake and Output Vital Signs (last 24 hours): Temp Pulse Resp BP Pulse Ox 97.6 F 91 H 20 136/81 98 08/11/17 08:00 08/11/17 08:00 08/11/17 08:00 08/11/17 08:00 08/11/17 08:00 Intake and Output: 08/11/17 08/11/17 06:59 18:59 Intake Total 1080 Output Total 400 Balance 680 - Medications Medications: Current Medications Acetaminophen (Tylenol 325mg Tab) 650 mg PO Q6H PRN PRN Reason: Pain, Mild (1-3) Last Admin: 08/11/17 03:24 Dose: 650 mg Carbamide Peroxide (Glyoxide) 0 ml MM QID [facility] Last Admin: 08/11/17 15:07 Dose: Not Given Famciclovir (Famvir) 500 mg PO Q12 [facility] Last Admin: 08/11/17 09:11 Dose: 500 mg Sodium Chloride (Sodium Chloride 0.45%) 1,000 mls @ 60 mls/hr IV .[id number] [facility] Last Admin: 08/11/17 09:17 Dose: 60 mls/hr Ibuprofen (Motrin Tab) 800 mg PO TID PRN PRN Reason: Pain, Mild (1-3) Insulin Human Regular (Humulin R Low) 0 units SC ACHS [facility] PRN Reason: Protocol Last Admin: 08/11/17 15:05 Dose: 4 units Losartan Potassium (Cozaar) 100 mg PO DAILY [facility] Last Admin: 08/11/17 09:07 Dose: 100 mg Methylprednisolone (Solu-Medrol) 20 mg IVP Q12 [facility] Last Admin: 08/11/17 09:04 Dose: 20 mg Morphine Sulfate (Morphine) 2 mg IVP Q3H PRN PRN Reason: Pain, moderate (4-7) Last Admin: 08/11/17 15:07 Dose: 2 mg Pantoprazole Sodium (Protonix Ec Tab) 40 mg PO 0600 [facility] Last Admin: 08/11/17 05:10 Dose: 40 mg - Labs Labs: 08/11/17 07:00 08/11/17 07:00 PT 12.9 SECONDS (9.4-12.5) H 08/07/17 09:35 INR 1.12 (0.93-1.08) H 08/07/17 09:35 APTT 25.7 Seconds (25.1-36.5) 08/07/17 09:35 - Constitutional Appears: Non-toxic - Head Exam Head Exam: NORMAL INSPECTION - ENT Exam ENT Exam: Mucous Membranes Moist - Respiratory Exam Respiratory Exam: Decreased Breath Sounds - Cardiovascular Exam Cardiovascular Exam: +S1, +S2 - GI/Abdominal Exam GI & Abdominal Exam: Soft. absent: Tenderness Assessment and Plan - Assessment and Plan (Free Text) Plan: Assessment Pancytopenia, R/O drug-induced, R/O other etiologies herpes oralis DM HTN GERD S/P cholecystectomy S/P hysterectomy Plan Will continue monitor off antibiotics since the patient does not have fever ( developed fever after blood transfusion but no recurrence) ;follow up bone marrow biopsy results and we have discussed with Dr. Rojas continue Famvir for the herpes infection will continue to follow clinically
[2017-08-12] MEDS: Morphine 2 mg/ml ISec IVP PRN ×5 (00:18→18:32)
[2017-08-12] MEDS: Pantoprazole 40 mg EC Tab PO SCH (06:38)
[2017-08-12 07:41] LABS: HEMOGLOBIN 9.3 g/dL (12.0-16.0); MEAN CORPUSCULAR HGB CONC 34.8 g/dl (31.0-37.0); RED CELL DISTRIBUTION WIDTH 15.6 % (11.5-14.5)
[2017-08-12 08:01] LABS: PLATELET COUNT 4 10^3/uL (120.0-450.0); WHITE BLOOD COUNT 0.4 10^3/ul (4.5-11.0)
[2017-08-12 08:07] LABS: ALB/GLOB RATIO 1.1 (1.1-1.8); ALBUMIN 3.2 g/dL (3.0-4.8); ALT/SGPT 19 U/L (7-56); AST/SGOT 16 U/L (14-36); BLOOD UREA NITROGEN 35 mg/dL (7-21); CALCIUM 9.4 mg/dL (8.4-10.5); GFR AFRICAN-AMERICAN > 60; GFR NON-AFRICAN AMERICAN > 60
[2017-08-12] MEDS: Insulin Reg-LOW-Coverage SC SCH ×4 (08:18→22:57)
--- NOTE | 2017-08-12 08:51 | PN ---
DATE: 08/11/2017 HEME/ONC PROGRESS NOTE SUBJECTIVE: The patient is in room 570, bed 2. This is a 67-year-old female admitted with progressive pancytopenia, status post bone marrow aspiration biopsy, status post one dose of Granix given on Friday along with two units of blood and a unit of platelets, all of which were given on Friday, developed significant mid back pain radiating anteriorly in a belt-like fashion. Most of the pain is in the mid thoracic area radiating anteriorly that has still persisted. The pain scale initially of 8 to 10 requiring IV narcotics, still at a 3 to 5 or 6 level in the back and the shoulders, coming up to the sternum, most likely related to the medication Granix that she received as a subcu injection as growth factors are known to expand the bone marrow and cause significant symptomatology with bone pain. The patient's workup for hematologic transfusion reaction had been negative. The patient did have CAT scan of the thoracic spine, also a CAT scan of the abdomen and pelvis, and indeed an ultrasound, all of which had been negative. Subjectively, the patient is seen lying in bed. She is complaining of pain in the mid back and across the shoulders extending to the sternum. Pain on the scale of 0 to 10 is that of 5. She has had at least two shots of IV morphine since the beginning of the day. Denies any history of nausea or vomiting. She has not had a bowel movement recently. Denies any abdominal pain. No fevers, no chills. Previously noted petechia on the face, on her arms. Neck and chest appeared to be improving. PHYSICAL EXAMINATION: GENERAL: The patient is examined, lying in bed. The patient is on neutropenic precautions. VITAL SIGNS: Stable. Blood pressure is 136/81, heart rate is 90, respirations 20, the patient's temperature is 97.6. HEENT: Head is normocephalic and atraumatic. Conjunctivae pale. Sclerae anicteric. Examination of the oropharynx reveals petechia of the short palate. No oropharyngeal lesions noted. Tongue is moist. NECK: Supple. There is no adenopathy. CARDIOPULMONARY: Examination of heart reveals PMI to be in the fifth intercostal space inside the midclavicular line. S1 and S2 are normal. No gallop or murmur is heard. LUNGS: Clear to percussion and auscultation. ABDOMEN: Soft, nondistended, nontender. No rebound, rigidity or guarding is noted. Liver and spleen are not palpable. EXTREMITIES: Reveal no cyanosis, clubbing, or edema. SKIN: Turgor is normal. The patient's petechiae over the different parts of the body appears to be improving except for the new finding of petechia in the oral cavity. LABORATORY DATA: Reviewed, still the counts noted to be persistently pancytopenic with a white count of 0.6, hemoglobin of 9.5, hematocrit 27, platelet count of 4000 with a manual count of 10. MEDICATIONS: The patient's medications are reviewed. She is on Cozaar 100 daily. She is on q.12 hours, ____, morphine, Motrin, Protonix, half normal saline an hour, Solu-Medrol 20 mg every q.12 hours and Tylenol. ASSESSMENT AND PLAN: The patient has pancytopenia, probably drug induced, could be clindamycin, time sequence of the events points to clindamycin could be a culprit. Other symptomatic etiologies such as primary bone marrow pathology is still pending. The patient is status post bone marrow aspiration biopsy Friday night, results are still not available, severe thrombocytopenia with no active bleeding with evidence of petechia in the soft palate, raising the concern for increased risk of bleeding. Will need platelet transfusions. Hemoglobin is stable. Hyponatremia, hypertension, noninsulin dependent diabetes, severe bone pain, probably related to the growth factor. Plan will be to continue conservative and cautious management. The patient is being followed by at this time except for antiherpetic therapy. The patient is on IV antibiotics as she is not being febrile. I spoke to the daughter in detail. I spoke to the patient as well. The patient's borderline platelet count makes me wonder she would probably need platelets in the very near future, especially with petechiae in the soft palate. The patient's family is requesting to wait to see if the platelet count really drops, and then we can transfuse the platelets. Mean time, the back pain is of concern, we are still monitoring from that perspective as well. Labs for a.m. have been requested. If the counts are of 10,000 or less will proceed with transfusion. One unit of blood is going to be available. Platelet is going to be available later this afternoon or evening. Blood transfusion in the morning if needed. Routine post-exam instructions has been given to the patient. ____ trying to correlate all the information, discussed with the patient, and talked to her family. Spoke to JESSI Sanders as well regarding her treatment plan. May have to consider IV gammaglobulin, if the platelet count continues to remain low, while we are waiting for further details on the bone marrow aspiration biopsy. Cytogenetics, flow cytometry all are pending at this time. Time spent with the patient as I mentioned is greater than an hour. Jacob Rojas MD
[2017-08-12 08:53] LABS: PLATELET ESTIMATE LOW (NORMAL)
[2017-08-12 09:10] LABS: PLATELET COUNT MANUAL 5 K/mm3 (120-450)
[2017-08-12] MEDS: MethylPREDNISolone 40 mg Vial IVP SCH ×2 (09:51→23:00)
[2017-08-12] MEDS ORDERED: POLYETHYLENE GLYCOL 3350 17 GM/Dose PACKET PO SCH (10:00)
[2017-08-12] MEDS: CARBAMIDE PEROXIDE MM SCH ×2 (12:07→23:00)
--- NOTE | 2017-08-12 14:30 | RAD ---
HISTORY: cough/ neutropenia COMPARISON: 09/27/2015 TECHNIQUE: Chest PA and lateral FINDINGS: LUNGS: No active pulmonary disease. PLEURA: Small bilateral pleural effusions. CARDIOVASCULAR: Normal. OSSEOUS STRUCTURES: No significant abnormalities. VISUALIZED UPPER ABDOMEN: Normal. OTHER FINDINGS: None. IMPRESSION: Small bilateral pleural effusions
[2017-08-12 16:28] VITALS: O2SAT 98
--- NOTE | 2017-08-12 16:31 | PN ---
DATE: SUBJECTIVE: The patient is currently seen in isolation. She remains pancytopenic. Workup is in progress. She is status post bone marrow biopsy, results are pending. She remains on steroids. Her BUN is slightly higher. Potassium level was 5.2. OBJECTIVE: INTAKE/OUTPUT: Intake is 2039, output 200. VITAL SIGNS: Blood pressure 148/83. Temperature 97.8, pulse 92 with a respiratory rate of 20. Oxygen saturation 92% on room air. HEENT: Normocephalic, atraumatic. Conjunctivae are pale. NECK: Supple without neck vein distention. CHEST: Clear to auscultation and percussion. No rales, rhonchi, or wheezing. CARDIOVASCULAR: Shows a regular rate and rhythm without murmurs, rubs, or gallops. ABDOMEN: Soft, nondistended, nontender. Bowel sounds normal. No rebound or guarding. EXTREMITIES: Show no cyanosis, clubbing, or edema. LABORATORY DATA AND IMAGING: CBC: White blood cell count 0.4, hemoglobin 9.3 with a platelet count of 4000, manual platelet count is 5000. The patient is status post transfusion 2 units of packed red blood cells and 1 unit of platelets. Chemistries: Sodium 133, potassium 5.2, chloride 100 with a CO2 of 25. BUN 35 with a creatinine of 0.8. Her BUN is less than 20 up to 35 on IV steroids. Calcium level 9.4. Liver enzymes are normal. Albumin level is 3.2. Her glucose level was 355. Sodium again 133, sodium corrects to 136-137. Microbiology, all cultures negative to date. ASSESSMENT: 1. Pancytopenia, etiology unclear. The patient is status post bone marrow biopsy. 2. Severe thrombocytopenia, but no bleeding. The patient has received 1 transfusion of platelets. 3. Status post hyponatremia. Sodium corrects to 136-137, for her glucose in the mid 300 range. 4. Hypertension. Blood pressure controlled on present medical therapy. 5. Noninsulin-dependent diabetes mellitus. The patient continues on sliding scale insulin. PLAN: 1. From a renal standpoint, the patient is entirely stable. Electrolytes are within acceptable range. Sodium corrects to normal. 2. Blood pressure control is acceptable on current medical therapy. 3. Hematology to follow up bone marrow results and advised the patient further based on results. 4. Discussed with the patient and her daughter in detail. At this point in time, no specific need for her to be followed by Renal. We will follow on a p.r.n. basis. Estiven Juan MD
[2017-08-12 17:26] VITALS: RESP 20
[2017-08-12 18:38] VITALS: BP 157/82; PULSE 100; TEMP 98.2
--- NOTE | 2017-08-12 19:31 | PN ---
DATE: SUBJECTIVE: A 67-year-old white female admitted to the hospital with pancytopenia, status post transfusion and Neupogen. The patient had a bone marrow done, which revealed acute promyelocytic leukemia. Her platelet count today is 4000, hemoglobin is 9.3, hematocrit 26.7, and white count is 0.4. Her potassium is 5.2, BUN and creatinine 35 and 0.8, and blood sugar is 355. The patient still has some back pain particularly right sided down to the right leg. The patient also has a left periorbital ecchymosis. There are multiple different stages some new ecchymosis of the arms and legs, abdomen, back and chest. The patient has no internal bleeding and no evidence of hematuria, hematochezia, or other sources of bleeding. PHYSICAL EXAMINATION: VITAL SIGNS: She is afebrile. CHEST: Clear to auscultation and percussion. HEART: Reveals sinus rhythm. No murmurs. ABDOMEN: Benign. No hepatosplenomegaly. No lymphadenopathy noted. EXTREMITIES: Without cyanosis, clubbing or edema. Case was discussed with the patient's family particularly her daughter, Jodi and also with Dr. Rojas today the diagnosis of acute promyelocytic leukemia, which was made on the basis of her bone marrow examination and her flow cytometry. The patient requested by the family was to move the patient to [facility], which is appropriate and we have send other patients with this type of diagnosis to [facility] in the past. Dr. Rojas reach out to one of his colleague at [facility] and attempt to secure a bed for this patient as soon as possible. The patient will need some platelet transfusion to stop any further bleeding and the patient also later found to have some coughing, a chest x-ray was ordered. There were small bilateral pleural effusions. There was no active pulmonary disease on the repeat chest x-ray. The patient was also medicated with cough suppressants. Examination is unchanged except for the new left periorbital ecchymosis. IMPRESSION: As above, acute promyelocytic leukemia with pancytopenia necessitating blood products and platelets. Gustavo Cardiello, MD [facility] # [id number]
[2017-08-12] MEDS ORDERED: HYDROmorphone 1 mg/ml ISec IVP PRN (20:37)
[2017-08-12] MEDS ORDERED: HYDROmorphone 0.5 mg/0.5 ml ISec IVP PRN (20:40)
--- NOTE | 2017-08-13 13:21 | PN ---
DATE: 08/12/2017 ONCOLOGY PROGRESS NOTE LOCATION: The patient is in room 570. 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 Based on these findings, I called [facility], admitted interim, so the patient could be transferred to the Leukemia Service soon as is feasible, so that the patient can be started on treatment with ATRA and other chemo regimens as needed based on further investigations. The patient's platelet count is still low and actually during the night, but as per my discussion with the daughter, she has been having more ecchymosis on her left orbit and on top of her scalp on the left side. In addition to that, she has distant ecchymosis in the rest of the areas of her body as well. SUBJECTIVE: The patient still has been complaining of pain in the mid back and in the rib cage along with some coughing for which chest x-ray has been ordered and will be discussed. Subjectively, the patient has still significant pain requiring narcotics, etiology of which is unclear because chest x-ray did not reveal it. The patient has been requiring narcotics for the same. The patient denies any history of fevers or chills. No history of nausea or vomiting. PHYSICAL EXAMINATION: GENERAL: The patient is examined by the bedside. VITAL SIGNS: Reveal blood pressure of 148/83, T-max of 97.8, pulse of 92, respirations of 20, and O2 sat is 92% on room air. HEENT: Head is normocephalic. The patient has multiple areas of ecchymosis over her left orbit, left buddhist area as well. In addition to that, she has ecchymosis on her arms and her left hand. She has ecchymosis extending on the abdominal wall as well. Conjunctivae are pale. Examination of the oropharynx reveals petechiae in the soft palate. NECK: Supple. There is no adenopathy. No jugular venous distention is noted. LUNGS: Clear to percussion and auscultation without any rhonchi or wheezing. The patient is complaining of midsternal pain and pain coming from the back. HEART: Examination of Cardiovascular system reveals S1 and S2 within normal. No gallop or murmurs heard. ABDOMEN: Soft and nondistended. Bowel sounds are present. No rebound, rigidity or guarding is noted. EXTREMITIES: There is no cyanosis, clubbing or edema. SKIN: As I mentioned shows multiple area of ecchymosis. LABORATORY DATA: From today, reveals white count of 14, hemoglobin of 9.3, platelet count of 4,000 and manual platelet count is 5,000. The patient is in the process of probably getting another unit of irradiated platelets before setting up for transfer. Chemistry reveals sodium of 133, potassium is 5.2, chloride is 100, CO2 of 25, and BUN of 35 with a creatinine of 0.8. Calcium is 9.4. Liver enzymes are normal. Albumin is 3.2, glucose is 355, sodium is 133 and corrected sodium is 136. Blood cultures to date have been negative. 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 Further details of the bone marrow biopsy is still pending, but the flow is definitely positive for acute promyelocytic leukemia. I had a detailed discussion with the pathologist reviewing the flow reports. Spoke to Dr. Rendon, our hospital pathologist as well. The patient in addition to this will need active therapy with ATRA plus or minus other drugs included in the combination for the treatment of acute promyelocytic leukemia. The patient is at risk for both thrombolic events plus excessive bleeding as well, and the patient is going to be transferred to [place] as soon as it is feasible. I did speak to the Leukemia Service people and covering doctor, as well as beds were not yet available. They were trying to set up a bed for her and in the meanwhile, we do not have access to ATRA here, so there was an imperative need for the patient to be transferred as soon as it is feasible all the treatment of this condition. I spent more than an hour correlating all the information and talking to the family, spoke to the patient, spoke to the daughter and her son who are by the bedside and filled out the forms for the ambulance for transfer. Total time spent to the patient is more than an hour. The patient is still getting single unit irradiated platelets today prior to transfer, so she is stable for transfer and will keep in touch with the attending at [place] once the patient is transferred to get a follow up as to how she is doing. I told the daughter that once she is sent, the team will see her and then appropriate decisions will be made regarding further management. Overall, prognosis even though is guarded, it is still optimistic as acute promyelocytic leukemia is one of those leukemias which is potentially curable. I will try to reassure the patient in great length regarding this. The patient was in a state of shock when I told her that she has leukemia. I spoke to Dr. Miranda as well patient over the last 12 hours. Transfer for this are in process. Jacob Rojas MD
[2017-08-13 13:27] LABS: PARVOVIRUS B19 AB (IGG) 10.5 (<0.9)
--- NOTE | 2017-08-14 02:13 | DS ---
HISTORY OF PRESENT ILLNESS: The patient is a 67-year-old white female who was discharged and transferred to [facility] on 08/13/2017. The patient was admitted with pancytopenia and was seen in consultation by Dr. Rojas and also by Dr. Amaya. The patient had a bone marrow examination done by Dr. Bear Julian who was found to have acute promyelocytic leukemia. The patient received blood transfusion because of hemoglobin less than 7 and platelet transfusion for a platelet count less than 3000. The patient also received a Neupogen shot because of a white count as low as 0.3. The patient has severe back pain following her Neupogen shot. She also developed a left ocular ecchymosis. She had multiple ecchymosis on her arms and legs. The chest x-ray was clear. She did not have fever or chills while in the hospital and did not develop any infectious disease while in the hospital and once the contact was made at the Oncology Department at [facility] and the patient was accepted as the patient was transferred there for further treatment of her promyelocytic leukemia. FINAL DISCHARGE DIAGNOSES: Acute promyelocytic leukemia, pancytopenia, and back pain. Gustavo Miranda MD
[2017-08-14 11:44] LABS: PARVOVIRUS B19 AB (IGM) 0.4 (<0.9)
== END 2017-08-13 01:30 | disposition short-term general hospital (02) | DRG 835 ==
LOC: ED 09:13 → ERH 10:45 → 5RSO 08-08 00:33
PROVIDERS: ADMIT Internal Medicine; ATTEND Internal Medicine
PROC: BR2CZZZ Computerized Tomography (CT Scan) of Pelvis (ICD-10-PCS; 2017-08-08)
PROC: 07DR3ZX Extraction of Iliac Bone Marrow, Percutaneous Approach, Diagnostic (ICD-10-PCS; principal; 2017-08-08 16:30)
PROC: 30233N1 Transfusion of Nonautologous Red Blood Cells into Peripheral Vein, Percutaneous Approach (ICD-10-PCS; 2017-08-09)
PROC: 6A551Z2 Pheresis of Platelets, Multiple (ICD-10-PCS; 2017-08-10)
DX: C92.40 Acute promyelocytic leukemia, not having achieved remission (principal); D61.818 Other pancytopenia; N17.9 Acute kidney failure, unspecified; B00.9 Herpesviral infection, unspecified; E87.1 Hypo-osmolality and hyponatremia; C92.00 Acute myeloblastic leukemia, not having achieved remission; E11.9 Type 2 diabetes mellitus without complications; I10 Essential (primary) hypertension; K21.9 Gastro-esophageal reflux disease without esophagitis; S00.12XA Contusion of left eyelid and periocular area, initial encounter; S20.211A Contusion of right front wall of thorax, initial encounter; Z78.9 Other specified health status; Z79.4 Long term (current) use of insulin; Z90.49 Acquired absence of other specified parts of digestive tract; Z90.710 Acquired absence of both cervix and uterus